=== PATIENT | female | born 1985 | race American Indian/Alaskan Native ===

== ENCOUNTER 2017-02-07 18:26 | Emergency (ER) | payer OTHER ==
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
[2017-02-07] MEDS ORDERED: MOTRIN PO ONE (21:13)
[2017-02-07] MEDS ORDERED: MOTRIN ONE (21:16)
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
[2017-02-08 11:27] VITALS: BP 107/66
== END 2017-02-07 22:21 | disposition home or self-care (01) ==
LOC: ED 18:26
DX: M54.2 Cervicalgia (principal); G44.319 Acute post-traumatic headache, not intractable; M25.50 Pain in unspecified joint; V43.52XA Car driver injured in collision with other type car in traffic accident, initial encounter; Y93.9 Activity, unspecified; Y99.9 Unspecified external cause status; Y92.410 Unspecified street and highway as the place of occurrence of the external cause
CPT/HCPCS: 72040; 81025; 99284